=== PATIENT | female | born 1955 | race Caucasian/White ===

== ENCOUNTER 2016-07-04 15:07 | Day surgery (SDC) | payer OTHER ==
[~2016-07-04 15:07] MED LIST: IV START KIT ONE; LACTATED RINGERS 1,000 ML ONE
[2016-07-04] MEDS ORDERED: PROPOFOL 20 ML IV ONE (16:20)
[2016-07-04] MEDS ORDERED: SUCRALFATE 1 G/10 ML DOSE PO ONE (17:07)
[2016-07-04] MEDS ORDERED: LACTATED RINGERS 1,000 ML IV SCH (17:15)
[2016-07-04 21:20] LABS: HELICOBACTER PYLORII DETECTION NEGATIVE (NEGATIVE)
--- NOTE | 2016-07-09 13:57 | SURGPATH ---
[facility] [address] [place] [id number] Patient Name: AMANDA GUZMAN MR#: [id number] : 1955 Gender: F Specimen #: [id number] Collected: 07/04/2016 Received: 07/06/2016 Reported: 07/09/2016 Submitting Phys: SHER AGUIRRE Copy To Phys: VIRI URIAS [facility] Clinical History / Pre-Operative Diagnosis: POSSIBLE ADAMS'S; POSSIBLE CELIAC Specimen Source / Surgical Procedure Performed: #1-DUODENUM BIOPSY; #2-ANTRAL BIOPSY; #3-GE JUNCTION AT 40 CM; #4-ESOPHAGUS AT 38 CM Interpretation: 1. DUODENUM, BIOPSY: - MILD PEPTIC DUODENITIS 2. STOMACH, ANTRUM, BIOPSY: - GASTRIC MUCOSA WITH NO DIAGNOSTIC ABNORMALITY 3. GE JUNCTION, 40 CM, BIOPSY: - INTESTINAL METAPLASIA CONSISTENT WITH ADAMS'S ESOPHAGUS, NEGATIVE FOR DYSPLASIA 4. ESOPHAGUS, 38 CM, BIOPSY: - SQUAMOUS MUCOSA WITH NO DIAGNOSTIC ABNORMALITY Electronically Signed Out Marely Cardenas M.D. Gross Description: #1 The specimen is received in a formalin filled container labeled with the patient's name and "duodenum biopsy". A single lyn biopsy is 0.5 cm. Totally embedded in cassette #1. #2 The specimen is received in a formalin filled container labeled with the patient's name and "antral biopsy". Two angulo-lyn biopsies are 0.4 and 0.5 cm. Totally embedded in cassette #2. #3 The specimen is received in a formalin filled container labeled with the patient's name and "GE junction at 40 cm". Four angulo biopsies are 0.3-0.6 cm. Totally embedded in cassette #3. #4 The specimen is received in a formalin filled container labeled with the patient's name and "esophagus biopsy at 38 cm". Two angulo biopsies are 0.2 and 0.5 cm. Totally embedded in cassette #4. Raquel Wallace Microscopic Description: 1. Sections show small bowel mucosa with focal mucosal reactive changes, Mi gland hyperplasia, and foveolar metaplasia. There is no dysplasia. 2. Sections show fragments of gastric mucosa. There is normal mucosal architecture and no significant inflammation. No Helicobacter organisms are identified and there is no intestinal metaplasia or dysplasia. 3. Sections show squamous mucosa with mild active inflammation. There is intestinal metaplasia, but there is no dysplasia. 4. Sections show fragments of squamous mucosa with histologic aide maturation. There is no significant inflammation and there is no intestinal metaplasia or dysplasia. 1: 42357 2: 86564 3: 97747 4: 21055, 3126F K22.24
== END 2016-07-04 17:42 | disposition home or self-care (01) ==
LOC: SDC 15:07
PROVIDERS: ATTEND Surgery
PROC: 0DB68ZX Excision of Stomach, Via Natural or Artificial Opening Endoscopic, Diagnostic (ICD-10-PCS; principal; 2016-07-04)
PROC: 0DB58ZX Excision of Esophagus, Via Natural or Artificial Opening Endoscopic, Diagnostic (ICD-10-PCS; 2016-07-04)
PROC: 0DB98ZX Excision of Duodenum, Via Natural or Artificial Opening Endoscopic, Diagnostic (ICD-10-PCS; 2016-07-04)
PROC: 0DB48ZX Excision of Esophagogastric Junction, Via Natural or Artificial Opening Endoscopic, Diagnostic (ICD-10-PCS; 2016-07-04)
DX: K44.9 Diaphragmatic hernia without obstruction or gangrene (principal); K29.70 Gastritis, unspecified, without bleeding; K29.80 Duodenitis without bleeding; I10 Essential (primary) hypertension; I25.10 Atherosclerotic heart disease of native coronary artery without angina pectoris; E78.5 Hyperlipidemia, unspecified; Z86.010 Personal history of colon polyps; Z86.73 Personal history of transient ischemic attack (TIA), and cerebral infarction without residual deficits; Z88.6 Allergy status to analgesic agent; Z88.5 Allergy status to narcotic agent; Z88.8 Allergy status to other drugs, medicaments and biological substances; Z72.0 Tobacco use
CPT/HCPCS: 43239; 87081; A9270; J7120